=== PATIENT | male | born 1980 | race Caucasian/White ===

== ENCOUNTER 2022-07-04 13:43 | Emergency (ER) | payer SELFPAY ==
[~2022-07-04] VITALS: Ht 177.8 cm; Wt 80.0 kg
[2022-07-04 13:47] VITALS: BP 129/88
[2022-07-04] MEDS ORDERED: SODIUM CHLORIDE 0.9% 1,000 ML IV ONE (14:00)
== END 2022-07-04 17:55 | disposition left against medical advice (07) ==
LOC: ER 14:31
DX: S00.81XA Abrasion of other part of head, initial encounter (principal); E11.65 Type 2 diabetes mellitus with hyperglycemia; W18.39XA Other fall on same level, initial encounter; Y93.89 Activity, other specified; Y92.89 Other specified places as the place of occurrence of the external cause; Y99.8 Other external cause status
CPT/HCPCS: 99283; J7030